=== PATIENT | female | born 1990 | race Hispanic/Latino ===

== ENCOUNTER 2025-04-08 01:11 | Emergency (ER) | payer BC, MEDICAID ==
[~2025-04-08] VITALS: Ht 154.9 cm; Wt 86.2 kg
[~2025-04-08 01:11] MED LIST: PREN-114 PO; PREN-196 PO
--- NOTE | 2025-04-08 01:52 | ERN ---
General Chief Complaint: Foreign Body Stated Complaint: INSECT IN R EAR Time Seen by MD: 01:28 History of Present Illness Initial Comments Patient comes in with complaint of foreign body in right ear. She was laying there and felt a buzzing and felt something fly into her ears. She did try removing it was irrigation and Q-tips. Still has sensation of foreign body. Comes in for evaluation. Allergies: Coded Allergies: No Known Allergies (Verified Allergy, 07/14/12) Home Meds Reported Medications Vit No.124/Iron/FA ( Vitamin Tablet) 1 Each Tablet, 1 EACH PO DAILY, TAB 09/03/16 Vit/Iron Fumarate/FA ( Vitamin Tablet) 1 Each Tablet, 1 EACH PO HS, TAB 01/27/14 Past Medical History Past Medical History: No Pertinent History Past Surgical History: None ROS Dictation Ten systems reviewed and negative except as noted in HPI Physical Exam General Appearance: (+) no apparent distress Orientation: (+) alert, (+) oriented x 3 Eye: bilateral eye normal inspection, bilateral eye EOMI Ear, Nose, Throat: (+) hearing grossly normal Ear, Nose, Throat Comment Patient has what appears to be a part of the insect wings stuck against the tympanic membrane on the right. Otherwise unremarkable. Neck: (+) normal inspection MDM Patient had partial insect wings in her ear canal. It was irrigated and removed with irrigation. Patient tolerated procedure well. Patient discharged. ED Course Vital Signs Date Time Temp Pulse Resp B/P (MAP) Pulse Ox O2 Delivery O2 Flow Rate FiO2 04/08/25 01:24 97.5 81 18 127/84 99 Room Air 0 Procedure Dictation Patient had foreign body in right ear. It was up small insect wing. It was irrigated using a 18 gauge Angiocath and sterile saline. He foreign body was flushed out and visible in the sink. Repeat otoscopic exam showed no more retained foreign body. Patient tolerated the procedure well. TM is otherwise unaffected and unremarkable. Patient discharged. DX & DISP Disposition: Discharge Departure Impression: Primary Impression: Foreign body of ear, right Condition: Stable Referrals: JUJU MENDOZA MD (PCP) KALLI RUIZ MD Apr 08, 2025 01:52
[2025-04-08 02:13] VITALS: BP 124/81; PULSE 78; RESP 18; TEMP 98.1; O2SAT 99
== END 2025-04-08 02:17 | disposition home or self-care (01) ==
LOC: EDH 01:11
DX: T16.1XXA Foreign body in right ear, initial encounter (principal); Z79.899 Other long term (current) drug therapy; W44.F4XA Insect entering into or through a natural orifice, initial encounter; Y93.89 Activity, other specified; Y92.89 Other specified places as the place of occurrence of the external cause; Y99.8 Other external cause status
CPT/HCPCS: 99283